=== PATIENT | male | born 1940 | race Caucasian/White ===

== ENCOUNTER 2018-06-14 12:32 | Inpatient (IN) | payer MEDICARE, OTHER ==
[2018-06-14 13:31] LABS: #Eosinphils 0.1 thou/uL (0.0-0.7); #Lymphocytes 1.1 thou/uL (1.20-3.40); #Neutrophils 5.3 thou/uL (1.40-6.50); %Basophils 0.4 % (0.0-1.0); %Eosinophils 0.9 % (0.0-10.0); %Lymphocytes 14.1 % (21.0-51.0); %Neutrophils 71.7 % (42.0-75.0); Hemoglobin 12.3 g/dL (14.0-18.0); Mean Corpuscular Hemoglobin 30.3 pg (27.0-31.0); Mean Corpuscular Volume 91.9 fL (78.0-98.0); Mean Platelet Volume 8.5 fL (7.4-10.4); Platelet Count 308 thou/uL (130-400); RBC Distribution Width 11.8 % (11.5-14.5); Red Blood Cell (RBC) Count 4.07 mill/uL (4.70-6.10); White Blood Cell (WBC) Count 7.5 thou/uL (4.8-10.8)
[2018-06-14] MEDS ORDERED: Ondansetron HCl/PF 4 MG/2 ML Vial ONE (13:46)
[2018-06-14 13:51] LABS: Anion Gap 14 mmol/L (10-20); BUN (Urea Nitrogen) 20 mg/dL (8.4-25.7); Calc. Creatinine Clearance 0 mL/min (70-130); Carbon Dioxide 22 mmol/L (23-31); Chloride 104 mmol/L (98-107); Estimated GFR-MDRD 70; Glucose 123 mg/dL (83-110); Potassium 4.1 mmol/L (3.5-5.1); Sodium 136 mmol/L (136-145)
--- NOTE | 2018-06-14 15:12 | CT ---
CT LUMBAR SPINE NONCONTRAST: History: Low back pain. Comparison: MR 02-09-14 FINDINGS: Scattered Schmorl's nodes and discogenic endplate changes are apparent. Overall appearance is similar to the prior MRI. Disc space narrowing at the L3-4, L4-5, and L5-S1 levels are again demonstrated. T ransitional vertebrae is present at the L5 level. Bilateral pars intraarticularis defects are again d emonstrated at the lumbosacral junction with grade I spondylolisthesis, unchanged. Minimal degenerati ve retrolisthesis at the L4-5 level. Degenerative changes with retrolisthesis at the L2-3 level. Moderate to severe central canal stenosis is similar to the 2014 MRI. Moderate central canal stenosis at the L4-5 level has progressed slightl y. Bilateral foraminal stenosis at the lowest three levels. Prominent calcification throughout the arterial structures. IMPRESSION: 1. 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 2. No acute osseous abnormalities are demonstrated. 3. Prominent multilevel degenerative changes with central canal and foraminal stenosis as detailed ab ove. 4. Atherosclerosis. POS: [facility]
[2018-06-14 17:16] VITALS: BMI 25.4
[2018-06-14] MEDS ORDERED: Senokot 8.6 MG TAB PO PRN (17:24)
[2018-06-14] MEDS ORDERED: Lorazepam 1 MG TAB PO SCH (17:45)
[2018-06-14] MEDS: HYDROcodone/Acetaminophen 5/325 mg Tablet PO PRN (18:36)
[2018-06-14] MEDS: Amlodipine 5 mg/Benazepril 10 mg CAP PO SCH (20:19)
[2018-06-14] MEDS ORDERED: HYDROcodone/Acetaminophen 5/325 mg Tablet PO SCH (21:00)
--- NOTE | 2018-06-14 21:41 | CON ---
DATE OF CONSULTATION: 06/14/2018 HISTORY OF PRESENT ILLNESS: Mr. Quan is a 77-year-old man admitted to [facility] for int ractable lower back pain with radicular bilateral lower extremity pain, right worse than left. For t his reason, Neurosurgery was consulted. Mr. Encarnacion is actually a patient who is scheduled to see our clinic with Dr. Bennett and Billy Dawkins tomorrow 06/15/2018; however, the pains that he has been dealing with over the last 72 hours have in creased to the point where he has actually been more or less bedbound and at the request of his famil y, he came to the emergency room pain control. They have done very nice job of improving his p ain and states that actually right now it is much more manageable. He has actually been up and out o f bed and ambulatory with minimal pain compared to his preadmission state. At bedside, he is resting comfortably. He has antigravity bilateral lower extremities, although he does have some pain, limit ed weakness with hip extension, knee extension, mostly in the lower back. He has a positive straight leg raise bilaterally. He also has a positive Sonny's maneuver and Marilyn maneuver mostly in the r ight lower extremity and then to a much milder degree in the left lower extremity, possibly signifyin g some kind of hip disease and for this purpose, I will obtain bilateral hip x-rays discuss his symptoms, he reports a chronic history of lower back pain that just has acutely worsened associated with bilateral L5 and some S1 symptoms mostly in the right lower extremity and at times in the left l ower extremity. He also reports bilateral cervical radiculopathies in a C6 fashion, left greater hyun n right. He has imaging performed at the [facility] of his lumbar spine revealing bilateral p ars defects at L5 with a grade I spondylolisthesis of L5 on S1 anteriorly causing lateral recess and foraminal stenosis at L5 which could certainly contribute to all of his symptoms that he reports. We do not have any cervical spine imaging; however, the primary team has ordered this, so we may have r esults tomorrow. I do feel that his lumbar pathology as surgical however, can be set up in the outpa tient setting and then we will recommend surgical treatment pending his imaging. This was discussed with Dr. Bennett.
--- NOTE | 2018-06-14 22:46 | HP ---
CHIEF COMPLAINT: Back pain, arm and leg pain. HISTORY OF PRESENT ILLNESS: The patient is a 77-year-old male who is followed by Dr. Pro. The patient started developing worsening pain in his lower back and lower extremities and his upper extremities as well. He went to see Dr. Pro who put him on a course of prednisone. The patient had relief with the prednisone, but it subsequently recurred soon, his prednisone was gone. He returned to Dr. Pro and had a second round of steroids which again were helpful for the short time that he was on them. Once they were completed, his symptoms came back. He has been using a TENS unit since that time various places with some modest relief. The patient was felt to possibly have a radiculopathy and was sent for an MRI, which revealed some degenerative changes and multilevel lumbar disk and facet degenerative changes with bilateral L5 pars defect and grade I spondylolisthesis of L5 on S1, producing area of canal and foraminal narrowing. The patient was subsequently referred to Dr. Bennett , the patient wants to have an appointment in Dr. Bennett's clinic tomorrow. Patient was unable to tolerate the pain, so he went to his PCP's office today who referred him to the emergency department for some pain management. The patient reports that he has had most of his pain in his left upper extremity. He denies any specific numbness other than having some numbness in his fourth and fifth fingers in the middle of the night. He has noted that since he started having his pain, he has been sleeping on his back more and that is when these symptoms occurred. He does believe he is having some generalized weakness that is beyond just the pain he is having. He is having a hard time even functioning and reports that his is frequently having to lift him and help him, even do things such as bathe and get out of the bathtub. The patient denies any difficulty with his bowel or bladder control. REVIEW OF SYSTEMS: Notable for some swelling in the left hand. Patient reports a couple of weeks ago, he had some superficial skin lesions "burned off " and subsequent to that he has had some swelling and discomfort in the metacarpophalangeal joint of the index finger. He also reports some occasional difficulty with his hearing based on complaints at home, but otherwise a 10- system review was negative except for those things mentioned in the history of present illness. The patient has some chronic pain in his left foot following an injury and which a cow stepped on his foot about 4-5 years ago. That is generally relieved when he is using an insert in his boot. PAST MEDICAL HISTORY: Notable for hypertension, hyperlipidemia, and some BPH. PAST SURGICAL HISTORY: Include appendectomy and remote C-spine disk surgery in the mid 1980s. FAMILY HISTORY: Alzheimer's. SOCIAL HISTORY: The patient is . His would be a surrogate decision maker and he is FULL CODE. He denies alcohol or drugs. He does use tobacco and he has used some hemp oil in efforts to try to relieve his pain without much help. ALLERGIES: SULFA. CURRENT MEDICATIONS: Zoloft 100 mg every day, Lipitor 40 every day rather Flomax 0.4 at bedtime, [place]ley 1-2 b.i.d. p.r.n., amlodipine/benazepril 1 p.o. at bedtime. PHYSICAL EXAMINATION: VITAL SIGNS: Temperature 98.1, pulse 81, respirations 18, O2 saturation 98%, blood pressure is 147/76. GENERAL APPEARANCE: Age appropriate male in no distress. He is awake, alert, oriented, pleasant, cooperative. HEENT: PERRL. No OP lesions. NECK: Supple and symmetric with no lymphadenopathy, JVD, or carotid bruits. HEART: Regular rate and rhythm without murmurs, gallops, or rubs. LUNGS: Clear to auscultation bilaterally with good chest wall expansion and air exchange. ABDOMEN: Soft, flat, nontender, nondistended, positive bowel sounds. No masses , no organomegaly. EXTREMITIES: Warm and dry without significant edema in the lower extremities, the left metacarpophalangeal joint of the index finger, has some generalized enlargement, slightly decreased range of motion and mild tenderness to palpation. It seems to have some capsular enlargement. Does not appear to be actively erythematous, warm, or inflamed. NEUROLOGIC: Patient is cognitively intact. Cranial nerves appear to be normal and functional. He has slight decrease in overall strength. He has slight weakness in the left lower extremity with dorsiflexion of the foot. Otherwise, his strength is generally down, but symmetric. He has brisk lower extremity reflexes and possibly borderline hyperreflexive on the left at the patellar tendon. LABORATORY AND DIAGNOSTIC DATA: White count 7.5, hemoglobin 12.3, platelets 308 ,000. Sodium 136, potassium 4.1, chloride 104, CO2 of 22, BUN 20, creatinine is 1.04, glucose 123, calcium 9. L-spine CT shows bilateral spondylolysis with grade I spondylolisthesis in the lumbosacral junction, stable compared to the MRI. No acute osseous abnormalities are demonstrated, prominent multilevel degenerative changes with central canal and foraminal stenosis as detailed and atherosclerosis. IMPRESSION AND PLAN: 1. This patient appears to have significant degenerative disk disease with some spondylolisthesis which may be accounting for some of his pain. However, much of his pain is in the upper extremities. He does have a remote history of a cervical spine disk surgery as well. We will obtain an MRI of the C-spine. We will obtain a physical therapy consult. We will obtain a neurosurgery consult. This was discussed with the neurosurgery PA from the emergency department patient's pain in the meantime. 2. 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 We will obtain a plain film x-ray. 3. Hypertension. Continue with his usual home medications. 4. Hyperlipidemia. Continue with his usual home medications. FADID
[2018-06-15] MEDS: HYDROcodone/Acetaminophen 5/325 mg Tablet PO PRN ×3 (00:43→20:33)
--- NOTE | 2018-06-15 07:31 | PRG ---
DATE OF SERVICE: 06/15/2018 I have seen and examined and agreed with Yuri Hall PA-C's evaluation on 06/14/2018. SUBJECTIVE: The patient is a 77-year-old male with longstanding lumbar spinal issues which scheduled to see me as an outpatient today for these reasons. An MRI scan performed in May shows multilevel degenerative findings with moderate stenosis at L2-L3 and spondylolisthesis and foraminal stenosis at L5-S1 along with a variety of other more minor issues in the lumbar spine. He was brought to the emergency room, not only because of low back pain, but also because of progress josy difficulty with getting up from a seated position and walking stably. He is also complaining of severe left arm pain. All of these are unexplained by a lumbar spinal pathology. There does seem to be some recent history of possible infection in the left hand. IMPRESSION AND PLAN: The patient is scheduled for an MRI of the cervical spine and I think this is a david strategy. We will follow up on these results to develop a final plan. With regard to the lumb ar disease, this can be managed as an outpatient, but I agree that this is not likely to fully explai n his walking and balance and his left arm pain.
[2018-06-15] MEDS ORDERED: Atorvastatin Calcium 40 MG TAB PO SCH (09:00)
--- NOTE | 2018-06-15 09:10 | MRI ---
MRI CERVICAL SPINE NONCONTRAST: Date: 06/15/18 HISTORY: Bilateral arm numbness, radiculopathy, neck pain. FINDINGS: Patient refused Gadolinium IV contrast for the exam. There is desiccation of all of the intervertebral discs. Vertebral body height and alignment are main tained. C2-3: Osteophytosis. Central canal and neural foramina are patent. C3-4: Circumferential degenerative changes. Moderate stenosis of the central canal. Prominent degenerative changes left facet, including joint fluid. Moderate right and severe left foraminal stenoses. C4-5: Posterior osteophyte/disc complex with flattening of the ventral aspect of the thecal sac and spinal cord by approximately 30%. Severe central canal stenosis. Severe bilateral foraminal stenoses. C5-6: Posterior osteophyte/disc complex and circumferential degenerative changes. Severe stenosis of the ce ntral canal with significant flattening and compression of the spinal cord. No abnormal signal within the cord. Severe bilateral foraminal stenoses. C6-7: Absence of disc signal suggesting prior surgical fusion. Persistent posterior osteophyte/disc complex . Mild to moderate stenosis of the central canal. Neural foramina are patent. C7-T1: Mild posterior osteophyte/disc complex. Moderate stenosis of the central canal. Moderate stenosis lef t neural foramen. IMPRESSION: Postoperative and prominent multilevel degenerative changes throughout the cervical spine as detailed above. Central canal and foraminal stenoses are most severe at the C5-6 level, especially the right neural foramen. No evidence of myelomalacia. Clinical correlation regarding the right C6 dermatome is required. POS: [facility]
--- NOTE | 2018-06-15 09:10 | RAD ---
RIGHT HIP TWO VIEWS: HISTORY: Pain. COMPARISON: None. FINDINGS: The contour of the femoral head is maintained. The joint space is preserved. No fracture. IMPRESSION: Unremarkable two views right hip. POS: [facility]
--- NOTE | 2018-06-15 09:12 | RAD ---
LEFT HIP 2 VIEWS: Date: 06/15/18 HISTORY: Left hip pain. FINDINGS: Mild joint space narrowing, osteophytosis, and subchondral sclerosis. Femoral head contour is maintai vaughn. No acute fracture, dislocation, or aggressive osseous erosion. Arterial calcification. IMPRESSION: 1. Mild osteoarthritic changes left hip. 2. Atherosclerosis. POS: [facility]
--- NOTE | 2018-06-15 09:17 | RAD ---
LEFT HAND THREE VIEWS: HISTORY: Swelling. COMPARISON: None. FINDINGS: Mild bone demineralization. There is preservation of the joint spaces. No fracture. No cortical ir regularity. No periosteal reaction. IMPRESSION: No acute abnormality with regard to the left hand. POS: [facility]
[2018-06-15 11:14] LABS: INR-International Normal Ratio 1.1; Prothrombin Time 14.3 SEC (12.0-14.7)
[2018-06-15 11:15] LABS: PTT 39.3 SEC (22.9-36.1)
[2018-06-15 14:47] LABS: #Eosinphils 0.1 thou/uL (0.0-0.7); #Lymphocytes 0.9 thou/uL (1.20-3.40); #Monocytes 0.7 thou/uL (0.11-0.59); #Neutrophils 5.7 thou/uL (1.40-6.50); %Basophils 0.2 % (0.0-1.0); %Eosinophils 0.7 % (0.0-10.0); %Lymphocytes 12.1 % (21.0-51.0); %Monocytes 9.9 % (0.0-10.0); %Neutrophils 77.1 % (42.0-75.0); Hemoglobin 12.8 g/dL (14.0-18.0); Mean Corpuscular HGB CONC 33.6 g/dL (32.0-36.0); Mean Corpuscular Hemoglobin 30.7 pg (27.0-31.0); Mean Corpuscular Volume 91.3 fL (78.0-98.0); Mean Platelet Volume 8.5 fL (7.4-10.4); Platelet Count 352 thou/uL (130-400); RBC Distribution Width 11.6 % (11.5-14.5); Red Blood Cell (RBC) Count 4.17 mill/uL (4.70-6.10); White Blood Cell (WBC) Count 7.4 thou/uL (4.8-10.8)
--- NOTE | 2018-06-15 15:30 | PRG ---
DATE OF SERVICE: 06/15/2018 SUBJECTIVE: The patient reports he continues to have some pain and generalized weakness. He has no new complaints from yesterday. OBJECTIVE: VITAL SIGNS: Temperature 100.2, O2 sat 92% on 2 liters, BP 137/66. GENERAL APPEARANCE: Age appropriate male. He just returned from [facility] and reported being cold and was shaking a bit. Otherwise, in no distress. HEENT: PERRL. No OP lesions. HEART: Has regular rate and rhythm without murmurs, gallops or rubs. LUNGS: Clear to auscultation bilaterally. ABDOMEN: Soft, nontender, nondistended with positive bowel sounds. SKIN: Warm and dry. NEUROLOGIC: Patient has some generalized weakness, had difficulty getting himself up in the bed and required assistance. IMPRESSION AND PLAN: 1. Evidence of lumbar and cervical radiculopathy. The patient has had lumbar MRI and MRI of the C-s pine is pending. Neurosurgery has seen the patient and anticipates they would try to perform any ind icated surgery on the C-spine during this admission should it exist; however, if it does not, they wo uld anticipate outpatient followup for the lumbar spine surgery. Once the MRI of the C-spine returns , did receive a call from Neurosurgery Service that they plan on doing surgery with anterior approach on the C-spine on morning. They requested EKG and coags. 2. Arthritis of the left metacarpophalangeal joint of the left index finger. Plain x-rays of this a re normal. He does not appear to be acutely inflamed at this time. 3. Low grade temperature. The patient was covering up with multiple blankets after returning from [facility] and reporting that he was cold. This may be although there is too low grade temperature. However , we will obtain a repeat CBC, check urinalysis and a chest x-ray. They will be more aggressive in t he workup considering patient is anticipating surgery after tomorrow. 4. Hypertension. Continue with his usual home medication regimen. 5. Hyperlipidemia, stable.
--- NOTE | 2018-06-15 15:44 | RAD ---
CHEST ONE VIEW: History: Fever. FINDINGS: No comparison. Cardiac silhouette is magnified by projection. Pulmonary vasculature is unremarkable. Mediastinum is midline. No lobar consolidation or evidence of pneumothorax. IMPRESSION: No active cardiopulmonary abnormalities are demonstrated. POS: [facility]
[2018-06-15 19:16] LABS: Bilirubin Negative (Negative); Blood, Urine Negative (Negative); Clarity CLOUDY (Clear); Glucose, Urine (Dipstick) Negative (Negative); Leukocyte Negative (Negative); Nitrite Negative (Negative); Protein, Urine (Dipstick) Negative (Neg-Trace); Specific Gravity, Urine 1.014 (1.002-1.036); pH, Urine 5.5 (5.0-9.0)
[2018-06-15] MEDS: Amlodipine 5 mg/Benazepril 10 mg CAP PO SCH (20:34)
[2018-06-16] MEDS: HYDROcodone/Acetaminophen 5/325 mg Tablet PO PRN ×4 (04:15→22:29)
--- NOTE | 2018-06-16 14:56 | PRG ---
DATE OF SERVICE: 06/16/2018 I reviewed Mr. Quan's MRI scan of the cervical spine which reveals fairly severe cervical stenosis which in my opinion is most pronounced at C5-C6. This is likely explanation for his diffuse weaknes s, poor coordination and balance, walking difficulty, and left arm pain. Given the progression of symptoms and the severity of the stenosis, I am recommending expeditious dec ompression for the purpose of neurologic preservation and I discussed this at length with the patient and his . We specifically discussed a C5-6 anterior cervical discectomy and fusion and the henrry cations, risks, benefits, and alternatives of the procedure. They expressed understanding and wished to proceed. We will plan to proceed tomorrow.
[2018-06-16] MEDS ORDERED: Bisacodyl 10 MG SUPP PR PRN (16:52)
--- NOTE | 2018-06-16 16:53 | PDOC.PN ---
- Subjective Encounter Start Date: 06/16/18 Encounter Start Time: 16:51 Mr. Quan was seen today in follow-up of cervical and lumbar disc disease. He says his hands a re a bit weak, and the right leg. No other major complaints except he has not had a bowel movement in a few days. - Objective Resuscitation Status: Resuscitation Status FULL:Full Resuscitation MAR Reviewed: Yes Vital Signs & Weight: Vital Signs (12 hours) Temp Pulse Resp BP BP Pulse Ox 06/16/18 11:30 98.3 F 80 18 107/65 95 06/16/18 08:00 97.4 F L 62 18 94 L 06/16/18 07:54 97.4 F L 62 18 114/68 94 L Weight Weight 158 lb I&O: 06/15/18 06/16/18 06/17/18 06:59 06:59 06:59 Intake Total 1999 Balance 1999 Result Diagrams: 06/15/18 14:37 06/14/18 13:22 Phys Exam - Physical Examination HEENT: PERRLA Respiratory: no wheezing, no rales, no rhonchi, clear to auscultation bilateral Cardiovascular: RRR, no significant murmur, no rub Gastrointestinal: soft, non-tender, positive bowel sounds Musculoskeletal: no edema Dx/Plan (1) Cervical spinal stenosis Code(s): M48.02 - SPINAL STENOSIS, CERVICAL REGION Status: Acute (2) Lumbar disc disease Code(s): M51.9 - UNSP THORACIC, THORACOLUM AND LUMBOSACR INTVRT DISC DISORDER Status: Acute (3) Hypertension Code(s): I10 - ESSENTIAL (PRIMARY) HYPERTENSION Status: Chronic (4) BPH (benign prostatic hyperplasia) Code(s): N40.0 - BENIGN PROSTATIC HYPERPLASIA WITHOUT LOWER URINRY TRACT SYMP Status: Chronic - Plan * Cervical Spinal stenosis, and Lumbar disc disease- plan is for surgery tomorrow * HTN- blood pressure has been stable * BPH- currently stable- will monitor post surgery.
[2018-06-16] MEDS: Amlodipine 5 mg/Benazepril 10 mg CAP PO SCH (21:17)
[2018-06-16] MEDS: Atorvastatin Calcium 40 MG TAB PO SCH (21:18)
[2018-06-17] MEDS: HYDROcodone/Acetaminophen 5/325 mg Tablet PO PRN ×2 (04:33→18:40)
[2018-06-17] MEDS ORDERED: CEFAZOLIN/Water 2 GM/20 ML SYRINGE ONE (07:22)
[2018-06-17] MEDS ORDERED: Morphine 4 MG/ML VIAL ONE (07:39)
[2018-06-17] MEDS ORDERED: Ketorolac Tromethamine 30 MG/ML VIAL IVP PRN (08:02)
[2018-06-17] MEDS ORDERED: Ondansetron HCl/PF 4 MG/2 ML Vial IVP PRN (08:02)
[2018-06-17] MEDS ORDERED: Fentanyl 100 MCG/2 ML VIAL ONE ×2 (08:23→08:52)
--- NOTE | 2018-06-17 10:39 | OP ---
DATE OF PROCEDURE: 06/17/2018 SURGEON: Yuri Bennett M.D. DRIVER STARTING GATE: Billy Dawkins PA-C. PROCEDURES PERFORMED: Anterior cervical discectomy C5-C6, interbody arthrodesis, intervertebral biom echanical device, local morselized autograft, demineralized bone matrix, anterior titanium instrument ation C5-C6. PROCEDURE IN DETAIL: The patient was brought into the operating room and intubated. He was position ed supine with the head in modest extension on a gel-filled donut. Incision was made in the right pr ecervical area and dissecting medial to the sternocleidomastoid muscle, identified the anterior cervi khalif spine and our level was confirmed by x-ray. We placed distraction across C5-C6 and using the ope rating microscope and microdissection techniques, completely removed the intervertebral disc down to the level of the spinal cord, completely decompressing the neural elements. The bony endplates were decorticated for the purpose of arthrodesis and appropriately sized intervertebral biomechanical PEEK device was brought into the field, filled with demineralized bone matrix, local morselized autograft , and tapped into place securely at C5-C6. Next, an anterior plate was brought in the field and secu red to C5, and C6 using two 14 mm screws at each level. The wound was then extensively irrigated, im maculate hemostasis was secured. The wound was closed in anatomic layers.
[2018-06-17] MEDS: CEFAZOLIN/Water 2 GM/20 ML SYRINGE SLOW IVP SCH ×2 (11:35→16:33)
[2018-06-17] MEDS ORDERED: PROPOFOL 200 MG/20 ML VIAL ONE (14:27)
[2018-06-17] MEDS ORDERED: Lidocaine 1% PF 5 ML VIAL ONE (14:27)
[2018-06-17] MEDS ORDERED: Glycopyrrolate 0.2 MG/ML 5 ML SYRINGE ONE (14:27)
[2018-06-17] MEDS ORDERED: Ondansetron HCl/PF 4 MG/2 ML Vial ONE (14:27)
[2018-06-17] MEDS ORDERED: Dexamethasone 20 MG/5 ML VIAL ONE (14:27)
[2018-06-17] MEDS ORDERED: PHENYLEPHRINE-NS 100 MCG/ML 10 ML SYRINGE ONE (14:27)
--- NOTE | 2018-06-17 15:46 | PDOC.PN ---
- Subjective Encounter Start Date: 06/17/18 Encounter Start Time: 15:44 Mr. Quan was seen today in follow-up. of cervical disc disease. He had Surgery this morning, and is feeling well. - Objective Resuscitation Status: Resuscitation Status FULL:Full Resuscitation MAR Reviewed: Yes Vital Signs & Weight: Vital Signs (12 hours) Temp Pulse Resp BP BP Pulse Ox 06/17/18 14:47 97.6 F 75 18 124/66 95 06/17/18 14:15 76 16 109/61 95 06/17/18 12:40 98.1 F 72 16 110/66 95 06/17/18 12:05 75 16 117/66 95 06/17/18 11:30 74 16 110/64 96 06/17/18 11:22 97.6 F 75 18 95 06/17/18 06:27 98.3 F 77 16 163/72 H 95 06/17/18 04:40 98.3 F 67 16 140/76 96 Weight Weight 158 lb I&O: 06/16/18 06/17/18 06/18/18 06:59 06:59 06:59 Intake Total 1999 100 Balance 1999 100 Result Diagrams: 06/15/18 14:37 06/14/18 13:22 Phys Exam - Physical Examination HEENT: PERRLA Respiratory: no wheezing, no rales, no rhonchi, clear to auscultation bilateral Cardiovascular: RRR, no significant murmur Gastrointestinal: soft, non-tender, positive bowel sounds Musculoskeletal: no edema Dx/Plan (1) Cervical spinal stenosis Code(s): M48.02 - SPINAL STENOSIS, CERVICAL REGION Status: Acute (2) Lumbar disc disease Code(s): M51.9 - UNSP THORACIC, THORACOLUM AND LUMBOSACR INTVRT DISC DISORDER Status: Acute (3) Hypertension Code(s): I10 - ESSENTIAL (PRIMARY) HYPERTENSION Status: Chronic (4) BPH (benign prostatic hyperplasia) Code(s): N40.0 - BENIGN PROSTATIC HYPERPLASIA WITHOUT LOWER URINRY TRACT SYMP Status: Chronic - Plan * Cervical Spinal Stenosis- improved after surgery * HTN- blood pressure is controlled * BPH- stable- will re-start Flomax * PT/OT as per NS.
[2018-06-17] MEDS ORDERED: Tamsulosin HCl 0.4 MG CAP PO SCH (21:00)
[2018-06-17] MEDS: Atorvastatin Calcium 40 MG TAB PO SCH (22:18)
[2018-06-17] MEDS: Amlodipine 5 mg/Benazepril 10 mg CAP PO SCH (22:18)
[2018-06-18] MEDS: CEFAZOLIN/Water 2 GM/20 ML SYRINGE SLOW IVP SCH
[2018-06-18 05:01] VITALS: TEMP 97.9
[2018-06-18] MEDS: HYDROcodone/Acetaminophen 5/325 mg Tablet PO PRN (07:48)
[2018-06-18 07:52] VITALS: BP 151/71
--- NOTE | 2018-06-18 07:56 | PRG ---
DATE OF SERVICE: 06/18/2018. The patient is a 77-year-old male postop day #1 from C5-C6 ACDF. The patient is doing remarkably wel l following surgery. He reports the pain is well controlled with p.o. medications, he is tolerating regular diet, and voiding appropriately. He has already improved significant function in the upper e xtremities. He is ambulatory without difficulty or assistance in the hallways. His incision is soft and dry. At this point, I do not feel the patient requires inpatient rehabilitation and could safel y be discharged to home. I have discussed home care precautions and will arrange 2 week followup wit h our office. I have provided the patient with prescriptions with Dowell and Zanaflex. Please reach out to Neurosurgery for additional questions or concerns.
--- NOTE | 2018-06-18 17:30 | DIS ---
DATE OF ADMISSION: 06/14/2018 DATE OF DISCHARGE: 06/18/2018 PRIMARY CARE PHYSICIAN: Nitesh Pro M.D. DISCHARGE DISPOSITION: Home. PRIMARY DISCHARGE DIAGNOSES: 1. Cervical spinal stenosis. 2. Lumbar disk disease. 3. Hypertension. 4. Benign prostatic hypertrophy. 5. Hyperlipidemia. DISCHARGE MEDICATIONS: Zanaflex 4 mg t.i.d. as needed, [place] 5/325 one tablet q.4 h. as needed for p ain, Flomax 0.4 mg at bedtime, Lipitor 40 mg daily, and amlodipine benazepril 10/20 one p.o. at bedti me. PROCEDURES DONE DURING ADMISSION: The patient had an MRI of the cervical spine and this demonstrated some postoperative prominent multilevel degenerative changes throughout the cervical spine, there wa s severe cervical spinal stenosis at the C5-C6 level, especially on the right neural foramen. There was no evidence of myelomalacia. CODE STATUS: FULL CODE. ALLERGIES: SULFA. HOSPITAL COURSE: Mr. Quan is a pleasant 77-year-old gentleman who presented to the emergency room complaining of numbness and weakness in the right leg as well as both arms and he also had been walk ing off balance. He also noted some pain in this area as well. He underwent an MRI of the cervical spine with demonstration of the severe cervical spinal stenosis. He was evaluated by Dr. Bennett wh o recommended surgery in order to stabilize the cervical spine and to prevent any further neurologica l decline. The patient underwent an anterior cervical diskectomy at the C5-C6 level. He tolerated t he procedure well and had a complicated postoperative course and was subsequently discharged home on 06/18/2018.
== END 2018-06-18 10:45 | disposition home or self-care (01) | DRG 473 ==
LOC: ERS 12:32 → OBSVTOIN 14:05 → T4-B 14:05
PROVIDERS: ADMIT Internal Medicine; ATTEND Internal Medicine
PROC: 0RG10A0 Fusion of Cervical Vertebral Joint with Interbody Fusion Device, Anterior Approach, Anterior Column, Open Approach (ICD-10-PCS; principal; 2018-06-14)
PROC: 0RT30ZZ Resection of Cervical Vertebral Disc, Open Approach (ICD-10-PCS; 2018-06-14)
DX: M48.02 Spinal stenosis, cervical region (principal); M19.042 Primary osteoarthritis, left hand; I10 Essential (primary) hypertension; E78.5 Hyperlipidemia, unspecified; N40.0 Benign prostatic hyperplasia without lower urinary tract symptoms; M51.16 Intervertebral disc disorders with radiculopathy, lumbar region; M43.16 Spondylolisthesis, lumbar region; Z88.2 Allergy status to sulfonamides; Z79.82 Long term (current) use of aspirin; Z79.899 Other long term (current) drug therapy
CPT/HCPCS: 36415; 71045; 72131; 72141; 76001; 80048; 81003; 85025; 85610; 85730; 93005; 93010; 96374; 96375; A4216; C1713; C1776; G8978-GP-CL; G8979-GP-CJ; G8987-GO-CI; G8987-GO-CJ; G8988-GO-CI; G8989-GO-CI; J0131; J1100; J2001; J2270; J2405; J2704; J3010

== ENCOUNTER 2018-07-01 09:51 | Outpatient (CLI) | payer MEDICARE ==
--- NOTE | 2018-07-01 11:40 | RAD ---
CERVICAL SPINE FOUR VIEWS: HISTORY: Status post fusion. Follow-up surgery. COMPARISON: None. FINDINGS: On the AP projection, there are mild degenerative changes of the facets. Soft tissue calcification d ue to atherosclerosis of the carotid arteries is noted. Open mouth projection is limited. Swimmer's and lateral views demonstrate an anterior fusion plate with transvertebral body screws at C 6 and C7. No perihardware lucency. There is an associated disk prosthesis. Vertebral body height i s maintained. No fracture. No prevertebral soft tissue swelling. IMPRESSION: Uncomplicated cervical fusion at C6-C7. POS: [facility]
== END 2018-07-01 09:52 | disposition home or self-care (01) ==
LOC: TBSIIMAG 09:51
PROVIDERS: ATTEND Physician Assistant
DX: M54.2 Cervicalgia (principal); Z98.1 Arthrodesis status
CPT/HCPCS: 72040

== ENCOUNTER 2019-12-30 09:23 | Outpatient (CLI) | payer MEDICARE ==
--- NOTE | 2019-12-30 10:56 | MRI ---
MR the lumbar spine without contrast: 12/30/2019 History: Low back pain with lower extremity radiculopathy COMPARISON: 02/09/2014 TECHNIQUE: Multiplanar multisequence MR images were obtained of lumbar spine without IV contrast FINDINGS: On the basis of 5 lumbar type vertebral bodies, conus medullaris terminates at theL1-2 level. Sagittal STIR imaging demonstrates no focal area of osseous marrow edema. Bilateral L5 pars defects a re present. L5-S1 anterolisthesis present measuring 8 mm, not significantly changed when compared to the prior exam. Stable mild retrolisthesis at L4-5 noted measuring 3-4 mm. T12-L1:Mild bilateral facet hypertrophy. Intervertebral disc height and signal intensity within mervin l limits with no significant central canal or neural foraminal stenosis. L1-2:There is disc space narrowing with disc desiccation mild disc bulge as well as bilateral facet h ypertrophy and anterior osteophyte formation. There is a small foraminal disc protrusion on the left. No significant central canal or neural foraminal stenosis. L2-3:Disc space narrowing with disc desiccation and disc bulge. There is a mild/moderate degree of ce ntral canal stenosis, worsened. Mild bilateral neural foraminal stenosis. L3-4:Bilateral facet hypertrophy and hypertrophy of ligamentum flavum. Disc space narrowing with disc desiccation and mild disc bulge. No significant central canal stenosis. Moderate left and severe right neural foraminal stenosis, worsened bilaterally since the prior examination. L4-5:Bilateral facet hypertrophy. No central canal stenosis. Disc space narrowing and disc desiccatio n. Left paracentral/left foraminal disc protrusion. Moderate/severe left neural foraminal stenosis and severe right neural foraminal stenosis, similar when compared to the prior examination. L5-S1:There is bilateral facet hypertrophy and hypertrophy of ligamentum flavum with severe bilateral neural foraminal stenosis, stable when compared to prior imaging. Stable mild central canal stenosis. Image retroperitoneal structures demonstrateno acute findings. IMPRESSION: Multilevel lumbar spine degenerative change as described above.
== END 2019-12-30 09:24 | disposition home or self-care (01) ==
LOC: TBSIIMAG 09:23
PROVIDERS: ATTEND Neurological Surgery
DX: M54.5 Low back pain (principal); M48.062 Spinal stenosis, lumbar region with neurogenic claudication; M47.816 Spondylosis without myelopathy or radiculopathy, lumbar region
CPT/HCPCS: 72148